=== PATIENT | female | born 1960 | race Caucasian/White ===

== ENCOUNTER 2017-11-21 18:24 | Inpatient (IN) | payer MEDICARE, OTHER ==
[2017-11-21] MEDS ORDERED: ADENOSINE 6 MG/2 ML VIAL IVPUSH ONE ×4 (18:33→19:19)
--- NOTE | 2017-11-21 18:39 | PDOC ---
History of Present Illness - General Stated Complaint: CHEST PAIN, DIZZINESS Time Seen by Provider: 11/21/17 18:32 History Source: Patient Exam Limitations: No Limitations - History of Present Illness Initial Comments: 11/21/17 21:37 Ms. Villegas is a 57 yo F with a hx of HTN, HLD, asthma, hypothyroidism, and hx of SVT 2 years ago without reocurrence or workup by cardiology presents via EMS for palpitations. She states it began at approximately 3:00 pm when she began having chest pain throughout her chest, SOB, and palpitations. She subsequently took her anti-hypertensive medications (losartan/HCTZ) and a 81 mg dose of aspirin, but it did not terminate her pain and palpitations. She arrived in the department with SVTs on the monitor without hypotension. Denies the following: fevers, chills, LOC, headaches, abdominal pain, nausea, vomiting, dysuria, hematuria, melena, hematochezia, leg pain and swelling. Denies recent travels, immobilizations, recent surgeries, and hx of DVT. Shx: C/S 33 years ago Meds: levothyroxine, advair, simvastatin, losartan/hctz, aspirin 81 mg Allergies: NKDA Social hx: Denies tobacco, alcohol, and substance abuse. Past History - Past Medical History Allergies/Adverse Reactions: Allergies Allergy/AdvReac Type Severity Reaction Status Date / Time No Known Allergies Allergy Unverified 11/21/17 18:40 Home Medications: Ambulatory Orders Aspirin [ASA -] 81 mg PO DAILY 11/21/17 Levothyroxine [Synthroid -] 100 mcg PO DAILY 11/21/17 Losartan/Hydrochlorothiazide [Losartan-Hctz 100-25 mg Tab] 1 each PO DAILY 11/21 Simvastatin 40 mg PO HS 11/21/17 Review of Systems - Review of Systems Able to Perform ROS?: Yes Constitutional: No: Chills, Diaphoresis, Fever, Weakness HEENTM: No: Recent change in vision, Ear Pain, Nose Pain, Throat Pain, Mouth Pain Respiratory: No: Cough, Shortness of Breath Cardiac (ROS): Yes: Palpitations. No: Chest Pain, Syncope ABD/GI: No: Abd. Pain w/ defecation, Constipated, Diarrhea, Nausea, Poor Appetite, Rectal Bleeding, Vomiting, Tarry Stools : No: Burning, Dysuria, Flank Pain, Hematuria Musculoskeletal: No: Back Pain, Joint Pain, Neck Pain Integumentary: No: Lesions, Lumps, Rash Neurological: No: Headache, Numbness, Tremors, Weakness, Ataxia, Dizziness Psychiatric: No: Stressors Endocrine: No: Unexplained Weight Gain Hematologic/Lymphatic: No: Anemia *Physical Exam - Physical Exam General Appearance: Yes: Nourished, Appropriately Dressed HEENT: positive: EOMI, FRANCA, Normal Voice, Symmetrical Neck: positive: Trachea midline. negative: Lymphadenopathy (R), Lymphadenopathy (L) Respiratory/Chest: positive: Lungs Clear, Normal Breath Sounds. negative: Chest Tender, Respiratory Distress, Accessory Muscle Use Cardiovascular: positive: Regular Rhythm, S1, S2, Tachycardia. negative: Systolic Murmur Vascular Pulses: Dorsalis-Pedis (R): 3+, Doralis-Pedis (L): 3+ Gastrointestinal/Abdominal: positive: Normal Bowel Sounds. negative: Tender Lymphatic: negative: Adenopathy Musculoskeletal: positive: Normal Inspection. negative: CVA Tenderness Extremity: positive: Normal Capillary Refill, Normal Inspection, Normal Range of Motion. negative: Tender Integumentary: positive: Normal Color, Dry, Warm Neurologic: positive: sales compensation analyst II-XII NML intact, Fully Oriented, Alert, Normal Mood/ Affect, Normal Response, Motor Strength 5/5. negative: EOM Palsy, Facial Droop , Sensory Deficit, Confused Heart Score/ECG Review - ECG Intrepretation Comment:: EKG pre 1st round of adenosine 12 mg initial presentation: ventricular rate: 201 bpm, QRS 82 ms, QTc 428 ms. SVT (18:25). EKG post 1st round of adenosine 12 mg initial dose: ventricular rate 138 bpm, WI 146 ms, QRS 82 ms, QTc 427 ms. Sinus tachy (18:32) EKG pre 2nd round of adenosine 12 mg: SVT with ventricular rate of 220. EKG post 2nd round of adenosine 12 mg: ventricular rate 77 bpm, WI is 182 ms, QRS is 84 ms, QTc is 454 ms. Normal sinus rhythm with no ST elevations or depressions noted. ED Treatment Course - LABORATORY CBC & Chemistry Diagram: 11/21/17 18:48 11/22/17 06:50 Medical Decision Making - Medical Decision Making 11/22/17 14:54 57 yo F with previous hx of SVT (2 yrs ago) and HTN who presents to the emergency department via EMS with palpitations secondary to SVT. Initial vitals: Initial Vital Signs Temp Pulse Resp BP Pulse Ox 98.2 F 190 H 20 161/103 100 11/21/17 18:40 11/21/17 18:40 11/21/17 18:40 11/21/17 18:40 11/21/17 18:40 Work up Laboratory Tests 11/21/17 11/21/17 18:48 18:48 WBC 8.3 RBC 4.28 Hgb 13.2 Hct 38.9 MCV 90.9 MCH 30.9 MCHC 34.0 RDW 13.4 Plt Count 386 MPV 9.0 Absolute Neuts (auto) 4.5 Neutrophils % 54.9 Lymphocytes % 31.9 Monocytes % 9.2 Eosinophils % 2.7 Basophils % 1.3 Nucleated RBC % 0 Sodium 139 Potassium 3.6 Chloride 103 Carbon Dioxide 24 Anion Gap 12 BUN 16 Creatinine 0.9 Creat Clearance w eGFR > 60 Random Glucose 123 H Calcium 9.3 Total Bilirubin 0.4 AST 15 ALT 27 Alkaline Phosphatase 61 Creatine Kinase 180 Creatine Kinase Index 0.6 CK-MB (CK-2) 1.18 Troponin I 0.05 Total Protein 8.3 H Albumin 3.9 TSH 4.44 H Initially presented to the emergency department with HR in the 220s range. She was asymptomatic and her blood pressure was within normal limits and she denied having chest pain, lighteheadedness or SOB. Initially, we used the modified valsalva maneuver to break the SVT which failed. We gave her 12 mg of adenosine while on EKG monitoring and her SVT broke to 110-130s and she continued to be asymptomatic. At approximately 7:00 pm, she began having SVT again and we pushed 12 mg of adenosine and her HR remained stable in the 70s-80s without symptoms. We started 5 mg of lopressor IV and 25 mg PO afterwards and contacted Dr. Segovia who will see the patient the next day. She was admitted to [facility]. CXR did not show acute pathologies. Dispo: Admit 11/22/17 15:01 *DC/Admit/Observation/Transfer Diagnosis at time of Disposition: Supraventricular tachycardia - Discharge Dispostion Decision to Admit order: Yes - Referrals - Patient Instructions - Post Discharge Activity
[2017-11-21 18:43] VITALS: BMI 29.2
[2017-11-21 19:02] LABS: BASO % 1.3 % (0-2.0); EOS % 2.7 % (0-4.5); HEMATOCRIT 38.9 % (32.4-45.2); HEMOGLOBIN 13.2 GM/dL (10.7-15.3); LYMPH % 31.9 % (8-40); MCH 30.9 pg (25.7-33.7); MEAN CELL VOLUME 90.9 fl (80-96); MONO % 9.2 % (3.8-10.2); NEUT % 54.9 % (42.8-82.8); PLATELET COUNT 386 K/MM3 (134-434); RBC 4.28 M/mm3 (3.60-5.2); RDW 13.4 % (11.6-15.6); WHITE BLOOD COUNT 8.3 K/mm3 (4.0-10.0)
[2017-11-21] MEDS ORDERED: METOPROLOL TARTRATE 5 MG/5 ML VIAL IVPUSH ONE (19:19)
[2017-11-21] MEDS ORDERED: METOPROLOL TARTRATE 25 MG TABLET (FP) PO ONE (19:19)
[2017-11-21] MEDS ORDERED: METOPROLOL TARTRATE 25 MG TABLET (FP) ONE (19:23)
[2017-11-21] MEDS ORDERED: METOPROLOL TARTRATE 5 MG/5 ML VIAL ONE (19:23)
[2017-11-21 19:30] LABS: ALBUMIN 3.9 g/dl (3.4-5.0); ANION GAP 12 MMOL/L (8-16); BLOOD UREA NITROGEN 16 mg/dL (7-18); CALCIUM 9.3 mg/dL (8.5-10.1); CHLORIDE 103 mmol/L (98-107); CO2 24 mmol/L (21-32); CREATININE 0.9 mg/dL (0.55-1.3); GLUCOSE,RANDOM 123 mg/dL (74-106); POTASSIUM 3.6 mmol/L (3.5-5.1); SGOT/AST 15 U/L (15-37); SGPT/ALT 27 U/L (13-61); SODIUM 139 mmol/L (136-145)
[2017-11-21 19:39] LABS: ALK PHOS 61 U/L (45-117); BILIRUBIN,TOTAL 0.4 mg/dL (0.2-1.0); TOT PROT 8.3 g/dl (6.4-8.2)
--- NOTE | 2017-11-21 20:41 | PDOC ---
Attending Attestation - Resident Resident Name: Clay Quintana - ED Attending Attestation I have performed the following: I have examined & evaluated the patient, The case was reviewed & discussed with the resident, I agree w/resident's findings & plan, Exceptions are as noted - HPI HPI: 11/21/17 20:37 57 F with h/o asthma, hypothyroid, SVT presenting to ED with palpitations. Pt states that she started feeling her heart racing at 3PM. She denies CP/SOB. States that she has had 2 prior episodes of SVT that required adenosine, last episode 2 years ago. Pt states this feels the same. Denies recent F/C. Denies N/ V/D. - Physicial Exam PE: 11/21/17 20:40 "GENERAL: Awake, alert, and fully oriented, in no acute distress. HEAD: No signs of trauma EYES: PERRLA, EOMI, sclera anicteric, conjunctiva clear ENT: Auricles normal inspection, hearing grossly normal, nares patent, oropharynx clear without exudates. Moist mucosa NECK: Nontender, no stepoffs, Normal ROM, supple, no lymphadenopathy, JVD, or masses LUNGS: Breath sounds equal, clear to auscultation bilaterally. No wheezes, and no crackles HEART: tachycardic, normal S1 and S2, no murmurs, rubs or gallops ABDOMEN: Soft, nontender, normoactive bowel sounds. No guarding, no rebound. No masses EXTREMITIES: Normal range of motion, no edema. No clubbing or cyanosis. No cords, erythema, or tenderness NEUROLOGICAL: Cranial nerves II through XII intact. 5/5 strength and sensation in all extremities, Normal speech, normal gait, normal cerebellar function SKIN: Warm, Dry, normal turgor, no rashes or lesions noted." - Medical Decision Making 11/21/17 20:40 57 F with palpitations, found to be tachycardic to 200 with SVT on EKG. Vagal maneuvers performed with no success. Pt given adenosine 12mg IV, with successful conversion to NSR Pt now reports no complaints. - Labs, cardiac enzymes 11/21/17 21:47 Pt with recurrent SVT 1 hour after adenosine administration. Adenosine 12mg IV given again, with successful conversion to NSR. Metoprolol 5mg IV and 25mg PO given Admitted to tele
--- NOTE | 2017-11-21 20:57 | PN ---
Teaching Attending Note Name of Resident: Karen Colunga ATTENDING PHYSICIAN STATEMENT I saw and evaluated the patient. I reviewed the resident's note and discussed the case with the resident. I agree with the resident's findings and plan as documented. SUBJECTIVE: Patient is a 57 year old woman with PMH of asthma, HTN, hypothyroid and SVT presenting to ER with palpitations. She started feeling her heart racing at 3PM. She had chest pain earlier but denies SOB. States that she has had 2 prior episodes of SVT that required adenosine, last episode 2 years ago. Denies chills , nausea or headache. In the ER she was found to be tachycardic to 200 with SVT on EKG. Vagal maneuvers performed with no success. She was given adenosine 12mg IV, with successful conversion to NSR. OBJECTIVE: Alert Vital Signs Period Temp Pulse Resp BP Sys/Pineda Pulse Ox Last 24 Hr 98.2 F 78-201 17-20 142-161/79-103 98-100 HEENT: No Jaundice, eye redness or discharge, PERRLA, EOMI. Normocephalic, atraumatic. External ears are normal and hearing is grossly intact. No nasal discharge. Neck: Supple, nontender. No palpable adenopathy or thyromegaly. No JVD Chest: Good effort. Clear to auscultation and percussion. Heart: Regular. No S3, rub or murmur Abdomen: Not distended, soft, nontender and no HSM. No rebound or guarding. Normoactive bowel sounds. Ext: Peripheral pulses intact. No leg edema. Skin: Warm and dry. No petechiae, rash or ecchymosis. Neuro: Alert. Oriented x3. CN 2-12 grossly intact. Sensation grossly intact in all four extremities and DTR are symmetric. Home Medications Medication Instructions Recorded Aspirin [ASA -] 81 mg PO DAILY 11/21/17 Levothyroxine [Synthroid -] 100 mcg PO DAILY 11/21/17 Losartan/Hydrochlorothiazide 1 each PO DAILY 11/21/17 [Losartan-Hctz 100-25 mg Tab] Simvastatin 40 mg PO HS 11/21/17 Abnormal Lab Results 11/21/17 18:48 Random Glucose 123 H Total Protein 8.3 H TSH 4.44 H ASSESSMENT AND PLAN: 1. SVT - Etiology unclear. Will admit to telemetry to rule out ACS in view of earlier brief bout of ches tpain. Get free T4, Phosphate, Mg+, lipid profile, ECHO, HbA1c, and give PO KCL (get K >4) and toprol XL 50 mg po q HS. Patient counseled on need for better BP control with salt restriction, weight loss and lifestyle changes. Cardiology consult. 2. DVT prophylaxis - Lovenox 40 mg SQ q 24 hours. 3. Advance directives - Full code
--- NOTE | 2017-11-21 22:14 | HP ---
CHIEF COMPLAINT: Tachycardia PCP: Dr. Wilbert Colby HISTORY OF PRESENT ILLNESS: Patient is a 57 year old female with a PMHx of HTN, HLD, Asthma, hypothyroidism , osteoporosis, SVT who presented to the ED with her sister complaining of "Tachycardia." According to patient, she woke up this morning with chest tightness and took her Albuterol with instant relief of symptoms. She states having to use her albuterol twice a week. Around 15:30 today, patient reached down to get her GPS and she started feeling palpitations associated with "squeezing," constant, nonradiating chest pain with no alleviating or exacerbating factors that lasted for one hour. She instantly took her Aspirin and drove home. Around 16:15, patient started feeling more palpitations and then took her BP and cholesterol medications. The palpitations did not subside , which prompted this hospital visit. According to patient, she had a similar episode three days ago that lasted only 45 minutes when she was laying down watching TV. She denies any strenuous activity or increase stress in her life. Patient states the first time she had this episode was three years ago and was taken to [facility] where they treated her with Adenosine, which stopped the SVT and was discharged from ED to follow up with manager of software. She followed up with the manager of software and states that he did not give her any medications or recommendations. A second episode happened two years ago and once again she went to [facility], gave her adenosine with symptoms resolved and discharged to follow up with Cardiology. Once again she reports the manager of software did not start her on any medications or give any recommendations. Patient otherwise denies any drug use, anxiety, fever, chills, nausea, vomiting , abdominal pain, shortness of breath, headaches, acute vision changes, dizziness, lightheadedness, diaphoresis, dysuria, hematuria, frequency, urgency , melena, hematochezia. Patient is unsure of ever having an ECHO or stress test States she has not followed up with a Community Health Education Coordinator in two years. 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 Single, lives alone. Moved from [facility] in [place]. Has two adult kids. Smoking: Denies Alcohol: 4 beers a week Drugs: Denies OBGYN History: with one elective first trimester Menarche: 13 Menopause: 47 Used to have regular 28 day cycles that lasted 3 days Not currently sexually active Family History: Father- Prostate cancer, HTN Mother- Asthma 7 brothers: HTN Allergies: No Known Allergies Allergy (Unverified 11/21/17 18:40) HOME MEDICATIONS: Home Medications Medication Instructions Recorded Aspirin [ASA -] 81 mg PO DAILY 11/21/17 Levothyroxine [Synthroid -] 100 mcg PO DAILY 11/21/17 Losartan/Hydrochlorothiazide 1 each PO DAILY 11/21/17 [Losartan-Hctz 100-25 mg Tab] Simvastatin 40 mg PO HS 11/21/17 REVIEW OF SYSTEMS CONSTITUTIONAL: Absent: fever, chills, diaphoresis, generalized weakness, malaise, loss of appetite, weight change HEENT: Absent: rhinorrhea, nasal congestion, throat pain, throat swelling, difficulty swallowing, mouth swelling, ear pain, eye pain, visual changes CARDIOVASCULAR: Chest pain, palpitations, irregular heart rate Absent: syncope, lightheadedness, peripheral edema RESPIRATORY: Absent: cough, shortness of breath, dyspnea with exertion, orthopnea, wheezing, stridor, hemoptysis GASTROINTESTINAL: Absent: abdominal pain, abdominal distension, nausea, vomiting, diarrhea, constipation, melena, hematochezia GENITOURINARY: Absent: dysuria, frequency, urgency, hesitancy, hematuria, flank pain, genital pain MUSCULOSKELETAL: Absent: myalgia, arthralgia, joint swelling, back pain, neck pain SKIN: Absent: rash, itching, pallor HEMATOLOGIC/IMMUNOLOGIC: Absent: easy bleeding, easy bruising, lymphadenopathy, frequent infections ENDOCRINE: Absent: unexplained weight gain, unexplained weight loss, heat intolerance, cold intolerance NEUROLOGIC: Absent: headache, focal weakness or paresthesias, dizziness, unsteady gait, seizure, mental status changes, bladder or bowel incontinence PSYCHIATRIC: Absent: anxiety, depression, suicidal or homicidal ideation, hallucinations. PHYSICAL EXAMINATION Vital Signs - 24 hr 11/21/17 11/21/17 11/21/17 18:40 18:50 19:02 Temperature 98.2 F Pulse Rate 190 H Pulse Rate [ 122 H 93 H Apical] Respiratory 20 18 17 Rate Blood Pressure 161/103 Blood Pressure 148/79 146/98 [Left Arm] O2 Sat by Pulse 100 99 99 Oximetry (%) 11/21/17 11/21/17 11/21/17 19:04 19:32 20:09 Temperature Pulse Rate Pulse Rate [ 201 H 78 Apical] Respiratory 18 17 Rate Blood Pressure 142/100 Blood Pressure 152/100 144/100 [Left Arm] O2 Sat by Pulse 98 98 Oximetry (%) GENERAL: Awake, alert, and fully oriented, in no acute distress. HEAD: Normal with no signs of trauma. EYES: Pupils equal, round and reactive to light, extraocular movements intact, sclera anicteric, conjunctiva clear. No lid lag. EARS, NOSE, THROAT: Ears normal, nares patent, oropharynx clear without exudates. Moist mucous membranes. NECK: Normal range of motion, supple without lymphadenopathy, JVD, or masses. LUNGS: Breath sounds equal, clear to auscultation bilaterally. No wheezes, and no crackles. No accessory muscle use. HEART: Regular rate and rhythm, normal S1 and S2 without murmur, rub or gallop. ABDOMEN: Soft, nontender, not distended, normoactive bowel sounds, no guarding, no rebound, no masses. No hepatomegaly or splenomegaly. MUSCULOSKELETAL: Normal range of motion at all joints. No bony deformities or tenderness. No CVA tenderness. UPPER EXTREMITIES: 2+ pulses, warm, well-perfused. No cyanosis. No clubbing. No peripheral edema. LOWER EXTREMITIES: 2+ pulses, warm, well-perfused. No calf tenderness. No peripheral edema. NEUROLOGICAL: Cranial nerves II-XII intact. Normal speech. Normal gait. Motor strength 5/5 bilaterally with sensory intact PSYCHIATRIC: Cooperative. Good eye contact. Appropriate mood and affect. SKIN: Warm, dry, normal turgor, no rashes or lesions noted, normal capillary refill. Laboratory Results - last 24 hr 11/21/17 11/21/17 18:48 18:48 WBC 8.3 RBC 4.28 Hgb 13.2 Hct 38.9 MCV 90.9 MCH 30.9 MCHC 34.0 RDW 13.4 Plt Count 386 MPV 9.0 Absolute Neuts (auto) 4.5 Neutrophils % 54.9 Lymphocytes % 31.9 Monocytes % 9.2 Eosinophils % 2.7 Basophils % 1.3 Nucleated RBC % 0 Sodium 139 Potassium 3.6 Chloride 103 Carbon Dioxide 24 Anion Gap 12 BUN 16 Creatinine 0.9 Creat Clearance w eGFR > 60 Random Glucose 123 H Calcium 9.3 Total Bilirubin 0.4 AST 15 ALT 27 Alkaline Phosphatase 61 Creatine Kinase 180 Creatine Kinase Index 0.6 CK-MB (CK-2) 1.18 Troponin I 0.05 Total Protein 8.3 H Albumin 3.9 TSH 4.44 H Chest X-Ray (11/21/17): No acute pathology ASSESSMENT/PLAN: Patient is a 57 year old female who presented for tachycardia and was found to be in SVT. Patient admitted to telemetry for further monitoring and management. SVT -Third episode in the last three years. Differentials include POTS, Hyperthyroidism, pheochromocytoma, dehydration, PE, Blood loss, or infectious etiology. Patient afebrile with no shortness of breath, hgb wnl, TSH elevated, BUN/Cr wnl and less likely dehydrated. -Repeat trops and EKG -Free T4 ordered -Metoprolol XL 50mg po -Toprol 5mg IVP Q4H PRN -Continuous tele monitoring -ECHO ordered -Magnesium, phosphate ordered to rule out any abnormalities -Replete potassium -Cardiology consult placed -Counseled on the importance of salt restriction and weight loss -Will likely require ablation Chest Pain -Rule out ACS -First Troponin 0.05, will repeat with EKG -Continuous cardiac monitoring -Cardiology consult -Continue ASA 81mg daily Hypokalemia -Likely medication induced -Potassium chloride 40meq ordered. -Maintain potassium >4.0 -Monitor BMP HTN- Uncontrolled -Losartan 100mg PO ordered -HCTZ 12.5mg PO -Metoprolol 50mg PO -Continue to monitor BP HLD -Lipid panel ordered -Continue Lipitor 20mg po HS Hypothyroidism -TSH elevated, Free T4 ordered -Continue home dose Levothyroxine 100mcg Hyperglycemia -A1C ordered -Patient denies history of DM -Daily BMP Asthma -Albuterol PRN F/E/N -On no fluids. Tolerates PO -Hypokalemia. Replete and repeat -Sodium controlled diet Prophylaxis -Lovenox 40 SQ Q24H for DVT. Moderate risk -No GI required Disposition -Full code -Overnight telemetry monitoring. Community Health Education Coordinator in the morning -Med Rec done Case Discussed with Attending, Dr. Duncan. Karen Colunga [id number] Visit type - Emergency Visit Emergency Visit: Yes ED Registration Date: 11/21/17 Care time: The patient presented to the Emergency Department on the above date and was hospitalized for further evaluation of their emergent condition. - New Patient This patient is new to me today: Yes Date on this admission: 11/21/17 - Critical Care Critical Care patient: No Hospitalist Screening - Colonoscopy Questionnaire Colonoscopy Questionnaire: Colonoscopy Questionnaire - Patient: 50 - 75 years old and never had a screening colonoscopy: Unknown History of colon or rectal polyps, or CA: Unknown History of IBD, Crohn's disease or UC: Unknown History of abdominal radiation therapy as a child: Unknown - Relative: 1 with colon or rectal CA, or polyps at age 60 or younger: Unknown Colon or rectal CA diagnosed at age 45 or younger: Unknown Multiple relatives with colon or rectal CA: Unknown - Outcome: Screening Result: Negative Screen
[2017-11-21] MEDS ORDERED: METOPROLOL TARTRATE 5 MG/5 ML VIAL IVPUSH PRN ×2 (22:19→22:27)
[2017-11-21] MEDS ORDERED: POTASSIUM CHLORIDE TABS 20 MEQ TABLET.ER (FP) PO ONE (22:23)
[2017-11-22 02:12] LABS: MAGNESIUM 2.3 mg/dL (1.8-2.4); PHOSPHOROUS 4.1 mg/dL (2.5-4.9)
[2017-11-22] MEDS: LEVOTHYROXINE NA 100 MCG TABLET (FP) PO SCH (06:41)
[2017-11-22 08:33] LABS: CHLORIDE 107 mmol/L (98-107); POTASSIUM 4.1 mmol/L (3.5-5.1); SODIUM 142 mmol/L (136-145)
[2017-11-22 08:45] LABS: ANION GAP 10 MMOL/L (8-16); BLOOD UREA NITROGEN 13 mg/dL (7-18); CHOLESTEROL 240 mg/dL (50-200); CO2 25 mmol/L (21-32); CREATININE 0.8 mg/dL (0.55-1.3); GLUCOSE,RANDOM 106 mg/dL (74-106); HDL CHOLESTEROL 75 mg/dL (40-60); TRIGLYCERIDES 91 mg/dL (0-150)
--- NOTE | 2017-11-22 09:11 | CON.CARD ---
Consult Consult Specialty:: cardio - History of Present Illness Chief Complaint: cp, palpitations History of Present Illness: 57 female presented with palpitations, cp, sob. in ER in SVT at rate of 200 bpm. broke with adenosine, recurred, broke again with adenosine (12mg both times) no more sx's since. given metoprolol yesterday in ER. denies cp or sob at baseline including walking on street or up stairs. was dizzy/LH at time of episode. no syncope PMH: PSVT x 1 in past, HTN, HLD, asthma, hypothyroidism no cigs no first degree relatives with CAD hx - Alcohol/Substance Use Hx Alcohol Use: No - Smoking History Smoking history: Never smoked Have you smoked in the past 12 months: No Home Medications - Allergies Allergies/Adverse Reactions: Allergies Allergy/AdvReac Type Severity Reaction Status Date / Time No Known Allergies Allergy Unverified 11/21/17 18:40 - Home Medications Home Medications: Ambulatory Orders Aspirin [ASA -] 81 mg PO DAILY 11/21/17 Levothyroxine [Synthroid -] 100 mcg PO DAILY 11/21/17 Losartan/Hydrochlorothiazide [Losartan-Hctz 100-25 mg Tab] 1 each PO DAILY 11/21 Simvastatin 40 mg PO HS 11/21/17 Review of Systems - Review of Systems Constitutional: denies: Chills, Fever Eyes: denies: Eye Pain HENT: denies: Nasal Congestion Neck: denies: Stiffness Cardiovascular: denies: Palpitations Respiratory: denies: Orthopnea, PND Gastrointestinal: denies: Diarrhea, Rectal Bleeding Genitourinary: denies: Burning, Hematuria Musculoskeletal: denies: Muscle Pain Integumentary: denies: Rash Neurological: denies: Numbness, Seizure, Syncope Endocrine: denies: Excessive Sweating Hematology/Lymphatic: denies: Excessive Bleeding Vital Signs: Vital Signs Temperature 98.2 F 11/22/17 05:42 Pulse Rate 60 11/22/17 05:42 Respiratory Rate 16 11/22/17 05:42 Blood Pressure 105/54 11/22/17 05:42 O2 Sat by Pulse Oximetry (%) 98 11/21/17 22:00 Constitutional: Yes: Well Nourished, No Distress Eyes: No: Sclera Icterus HENT: No: Nasal Congestion Neck: No: Decreased ROM Respiratory: Yes: CTA Bilaterally. No: Accessory Muscle Use Gastrointestinal: Yes: Normal Bowel Sounds. No: Distention, Hepatomegaly, Palpable Mass, Tenderness Cardiovascular: Yes: Regular Rate and Rhythm JVD: No Carotid Bruit: No PMI: Non-Displaced Heart Sounds: Yes: S1, S2. No: Gallop Murmur: No: Systolic Murmur, Diastolic Murmur Musculoskeletal: Yes: Other (No kyphosis) Extremities: No: Cool, Cyanosis Edema: No Peripheral Pulses: 2+ Left Carotid, 2+ Right Carotid, 2+ Left Doralis Pedis, 2+ Right Dorsalis Pedis Integumentary: No: Jaundice Neurological: Yes: Alert, Oriented (x3) Psychiatric: No: Agitated - Other Data Labs, Other Data: CBC, BMP 11/21/17 18:48 11/22/17 06:50 Troponin, BNP 11/21/17 11/22/17 11/22/17 18:48 01:00 06:50 Troponin I 0.05 1.00 H* 1.22 H* Troponin, BNP 11/21/17 11/22/17 11/22/17 18:48 01:00 06:50 Troponin I 0.05 1.00 H* 1.22 H* Assessment/Plan ECG #1 (11/21, 18:25): 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; 2 mm horiz/downsloping ST depressions diffusely ECG #2 (18:32): sinus tach, ST depressions resolving, now upsloping ECG #3 and #4: NSR, no ST depressions PSVT, likely AVNRT: -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 i also do not rec observation only, given potential for temporarily distracting/incapacitating sx's if occurs during driving (was dizzy at time of event) -she prefers meds over ablation -start toprol 50 qd -to f/u with us within 4 wks as outpt for monitoring chest pain: -occurred in setting of SVT with HR of 200 bpm -ischemic changes on ekg are likely rate-related -troponins rising (1.5), monitor trend -will need risk stratification with nuclear stress test to r/o underlying CAD but suspect this is all rate related (demand ischemia). pt with moderately elevated LDL--lexiscan MPI tomorrow HPL: -on simva 40 at home, ? if taking -LDL 160s here -needs routine outpt f/u for accurate ASCVD risk estimation and risk/benefit discussion of primary prevn statin (unless stress test shows ischemic heart dz, in which case statins are obligatory here) HTN: -bp controlled -cont home meds hypothyroid: -TSH ok; per primary
--- NOTE | 2017-11-22 09:38 | PN ---
Physical Exam: SUBJECTIVE: Patient seen and examined, no events overnight. NO further chest pain, palpitations, dyspnea, dizziness or new concerns. Feels well. OBJECTIVE: Vital Signs Period Temp Pulse Resp BP Sys/Pineda Pulse Ox Last 24 Hr 98.2 F-98.3 F 60-201 16-20 105-161/54-103 98-100 GENERAL: sitting in bed in no acute distress CVS: S1S2 regular, no murmurs or rubs appreciated Abdomen:soft, NT, ND, positive bowel sounds Extremities: No edema Chest: CTAB, no rales or wheezing Neck: soft, supple, no JVD Laboratory Results - last 24 hr 11/21/17 11/21/17 11/22/17 18:48 18:48 01:00 WBC 8.3 RBC 4.28 Hgb 13.2 Hct 38.9 MCV 90.9 MCH 30.9 MCHC 34.0 RDW 13.4 Plt Count 386 MPV 9.0 Absolute Neuts (auto) 4.5 Neutrophils % 54.9 Lymphocytes % 31.9 Monocytes % 9.2 Eosinophils % 2.7 Basophils % 1.3 Nucleated RBC % 0 Sodium 139 Potassium 3.6 Chloride 103 Carbon Dioxide 24 Anion Gap 12 BUN 16 Creatinine 0.9 Creat Clearance w eGFR > 60 Random Glucose 123 H Hemoglobin A1c % Calcium 9.3 Phosphorus 4.1 Magnesium 2.3 Total Bilirubin 0.4 AST 15 ALT 27 Alkaline Phosphatase 61 Creatine Kinase 180 Creatine Kinase Index 0.6 CK-MB (CK-2) 1.18 Troponin I 0.05 Total Protein 8.3 H Albumin 3.9 Triglycerides Cholesterol Total LDL Cholesterol HDL Cholesterol TSH 4.44 H Free T4 11/22/17 11/22/17 11/22/17 01:00 02:20 06:50 WBC RBC Hgb Hct MCV MCH MCHC RDW Plt Count MPV Absolute Neuts (auto) Neutrophils % Lymphocytes % Monocytes % Eosinophils % Basophils % Nucleated RBC % Sodium 142 Potassium 4.1 Chloride 107 Carbon Dioxide 25 Anion Gap 10 BUN 13 Creatinine 0.8 Creat Clearance w eGFR > 60 Random Glucose 106 Hemoglobin A1c % Calcium 9.0 Phosphorus Magnesium Total Bilirubin AST ALT Alkaline Phosphatase Creatine Kinase Creatine Kinase Index CK-MB (CK-2) Troponin I 1.00 H* Total Protein Albumin Triglycerides 91 Cholesterol 240 H Total LDL Cholesterol 162 H HDL Cholesterol 75 H TSH Free T4 1.01 11/22/17 11/22/17 06:50 06:50 WBC RBC Hgb Hct MCV MCH MCHC RDW Plt Count MPV Absolute Neuts (auto) Neutrophils % Lymphocytes % Monocytes % Eosinophils % Basophils % Nucleated RBC % Sodium Potassium Chloride Carbon Dioxide Anion Gap BUN Creatinine Creat Clearance w eGFR Random Glucose Hemoglobin A1c % 5.6 Calcium Phosphorus Magnesium Total Bilirubin AST ALT Alkaline Phosphatase Creatine Kinase Creatine Kinase Index CK-MB (CK-2) Troponin I 1.22 H* Total Protein Albumin Triglycerides Cholesterol Total LDL Cholesterol HDL Cholesterol TSH Free T4 Home Medications Medication Instructions Recorded Aspirin [ASA -] 81 mg PO DAILY 11/21/17 Levothyroxine [Synthroid -] 100 mcg PO DAILY 11/21/17 Losartan/Hydrochlorothiazide 1 each PO DAILY 11/21/17 [Losartan-Hctz 100-25 mg Tab] Simvastatin 40 mg PO HS 11/21/17 Active Medications Generic Name Dose Route Start Last Admin Trade Name Freq PRN Reason Stop Dose Admin Aspirin 81 mg 11/22/17 10:00 Asa - PO DAILY [facility] Atorvastatin Calcium 20 mg 11/22/17 22:00 Lipitor - PO HS [facility] Enoxaparin Sodium 40 mg 11/22/17 10:00 Lovenox - SQ DAILY [facility] Levothyroxine Sodium 100 mcg 11/22/17 07:00 11/22/17 06:41 Synthroid - PO 100 mcg DAILY@0700 [facility] Administration Metoprolol Succinate 50 mg 11/23/17 10:00 Toprol Xl - PO DAILY [facility] Metoprolol Tartrate 5 mg 11/21/17 22:27 Lopressor Injection - IVPUSH Q4H PRN HYPERTENSION Pneumococcal Polyvalent Vaccine 0.5 ml 11/22/17 10:00 Pneumovax - IM 11/22/17 10:01 .ONCE ONE EKG strip SVT ST depressions lateral leads, NSR currently ASSESSMENT/PLAN: 57 yof with PMHx of HTN, HLD, Asthma, hypothyroidism, osteoporosis, SVT admitted with SVT and NSTEMI -SVT -NSTEMI, suspect demand type II from above, r/o underlying CAD -HTN -HLD -Subclinical Hypothyroidism -Asthma Plan: s/p adenosine 20 mg IV x 1, lopressor 5 mg IV and 25 mg PO lopressor in the ED. Currently in NSR. Continue Toprol XL 50 mg daily. EKG with ischemic changes when tachycardic that improved with rate controlled. r/o underlying CAD Will likely need stress test. Follow up with cardiology. Lipid panel noted. Continue ASA/statin. TSH/T4 noted, continue levothyroxine. Outpatient endocrine follow up. Hold losartan/HCTZ to allow room for rate control/beta blockers. DVTPPX lovenox Dispo pending cardiology work up. Plan discussed with patient in detail, all questions answered. Patient relays understanding and in agreement. Visit type - Emergency Visit Emergency Visit: Yes ED Registration Date: 11/21/17 Care time: The patient presented to the Emergency Department on the above date and was hospitalized for further evaluation of their emergent condition. - New Patient This patient is new to me today: Yes Date on this admission: 11/22/17 - Critical Care Critical Care patient: No - Discharge Referral Referred to [facility] No
[2017-11-22] MEDS: ENOXAPARIN NA (PORCINE) 40 MG/0.4 ML DISP.SYRIN SQ SCH (09:46)
[2017-11-22] MEDS: ASPIRIN 81 MG CHEWABLE TABLETS PO SCH (09:46)
[2017-11-22] MEDS ORDERED: PNEUMOCOCCAL 23 VACCINE 0.5 ML VIAL IM ONE (10:00)
[2017-11-22] MEDS ORDERED: PNEUMOC 13-VAL CONJ-DIP CRM/PF 0.5 ML DISP.SYRIN IM ONE (10:00)
[2017-11-22] MEDS ORDERED: LOSARTAN POTASSIUM 50 MG TABLET (FP) PO SCH (10:00)
[2017-11-22] MEDS ORDERED: HYDROCHLOROTHIAZIDE 12.5 MG CAPSULE (FP) PO SCH (10:00)
[2017-11-22 10:15] LABS: MAGNESIUM 2.5 mg/dL (1.8-2.4); PHOSPHOROUS 3.4 mg/dL (2.5-4.9)
--- NOTE | 2017-11-22 21:14 | EKG ---
Test Reason : Blood Pressure : / mmHG Vent. Rate : 062 BPM Atrial Rate : 062 BPM P-R Int : 186 ms QRS Dur : 094 ms QT Int : 460 ms P-R-T Axes : 073 038 053 degrees QTc Int : 466 ms NORMAL SINUS RHYTHM NONSPECIFIC T WAVE ABNORMALITY PROLONGED QT ABNORMAL ECG WHEN COMPARED WITH ECG OF 21-NOV-2017 20:37, NO SIGNIFICANT CHANGE WAS FOUND Confirmed by IMANI RODRIGUEZ MD ([id number]) on 11/22/2017 9:14:13 PM Referred By: MADISON Confirmed By:IMANI RODRIGUEZ MD
--- NOTE | 2017-11-22 21:14 | EKG ---
Test Reason : Blood Pressure : / mmHG Vent. Rate : 065 BPM Atrial Rate : 065 BPM P-R Int : 180 ms QRS Dur : 090 ms QT Int : 468 ms P-R-T Axes : 072 037 062 degrees QTc Int : 486 ms NORMAL SINUS RHYTHM T WAVE ABNORMALITY, CONSIDER ANTERIOR ISCHEMIA PROLONGED QT ABNORMAL ECG WHEN COMPARED WITH ECG OF 22-NOV-2017 03:31, NO SIGNIFICANT CHANGE WAS FOUND Confirmed by IMANI RODRIGUEZ MD ([id number]) on 11/22/2017 9:13:37 PM Referred By: MADISON Confirmed By:IMANI RODRIGUEZ MD
--- NOTE | 2017-11-22 21:21 | EKG ---
Test Reason : Blood Pressure : / mmHG Vent. Rate : 077 BPM Atrial Rate : 077 BPM P-R Int : 182 ms QRS Dur : 084 ms QT Int : 402 ms P-R-T Axes : 070 040 054 degrees QTc Int : 454 ms NORMAL SINUS RHYTHM NORMAL ECG WHEN COMPARED WITH ECG OF 21-NOV-2017 18:32, VENT. RATE HAS DECREASED BY 61 BPM Confirmed by IMANI RODRIGUEZ MD ([id number]) on 11/22/2017 9:20:44 PM Referred By: Confirmed By:IMANI RODRIGUEZ MD
--- NOTE | 2017-11-22 21:27 | EKG ---
Test Reason : Blood Pressure : / mmHG Vent. Rate : 201 BPM Atrial Rate : 107 BPM P-R Int : 000 ms QRS Dur : 082 ms QT Int : 234 ms P-R-T Axes : 000 058 251 degrees QTc Int : 428 ms SUPRAVENTRICULAR TACHYCARDIA MARKED ST ABNORMALITY, POSSIBLE INFERIOR SUBENDOCARDIAL INJURY ABNORMAL ECG NO PREVIOUS ECGS AVAILABLE Confirmed by IMANI RODRIGUEZ MD ([id number]) on 11/22/2017 9:26:58 PM Referred By: Confirmed By:IMANI RODRIGUEZ MD
--- NOTE | 2017-11-22 21:27 | EKG ---
Test Reason : Blood Pressure : / mmHG Vent. Rate : 138 BPM Atrial Rate : 138 BPM P-R Int : 146 ms QRS Dur : 082 ms QT Int : 282 ms P-R-T Axes : 069 054 040 degrees QTc Int : 427 ms SINUS TACHYCARDIA NONSPECIFIC ST ABNORMALITY ABNORMAL ECG WHEN COMPARED WITH ECG OF 21-NOV-2017 18:25, ST NO LONGER DEPRESSED IN INFERIOR LEADS ST NO LONGER DEPRESSED IN LATERAL LEADS T WAVE INVERSION NO LONGER EVIDENT IN INFERIOR LEADS T WAVE INVERSION NO LONGER EVIDENT IN ANTEROLATERAL LEADS Confirmed by IMANI RODRIGUEZ MD ([id number]) on 11/22/2017 9:26:44 PM Referred By: Confirmed By:IMANI RODRIGUEZ MD
[2017-11-22] MEDS ORDERED: ATORVASTATIN CA 20 MG TABLET (FP) PO SCH (22:00)
[2017-11-23 06:53] LABS: ANION GAP 10 MMOL/L (8-16); BLOOD UREA NITROGEN 16 mg/dL (7-18); CALCIUM 8.7 mg/dL (8.5-10.1); CHLORIDE 106 mmol/L (98-107); CO2 26 mmol/L (21-32); CREATININE 0.8 mg/dL (0.55-1.3); GLUCOSE,RANDOM 107 mg/dL (74-106); POTASSIUM 3.9 mmol/L (3.5-5.1); SODIUM 142 mmol/L (136-145)
[2017-11-23 07:02] LABS: MAGNESIUM 2.2 mg/dL (1.8-2.4); PHOSPHOROUS 3.7 mg/dL (2.5-4.9)
[2017-11-23] MEDS: LEVOTHYROXINE NA 100 MCG TABLET (FP) PO SCH (07:10)
--- NOTE | 2017-11-23 07:55 | PN ---
Teaching Attending Note Name of Resident: Kip Carolina ATTENDING PHYSICIAN STATEMENT I saw and evaluated the patient. I reviewed the resident's note and discussed the case with the resident. I agree with the resident's findings and plan as documented with exceptions below. SUBJECTIVE: Patient seen and examined. No chest pain, palpitations, dyspnea, dizziness or concerns overnight. Feels well. Awaiting stress test. OBJECTIVE: Vital Signs Period Temp Pulse Resp BP Sys/Pineda Pulse Ox Last 24 Hr 97.8 F-98.2 F 58-72 18-20 116-163/71-93 98-98 Intake & Output 11/20/17 11/21/17 11/22/17 11/23/17 23:59 23:59 23:59 23:59 Intake Total 1070 260 Balance 1070 260 Weight 160 lb General: lying in bed in no acute distress Chest: CTAB, no rales or wheezing CVS:S1S2 regular Abdomen:soft, obese, NT Extremities: no edema Active Medications Aspirin (Asa -) 81 mg PO DAILY [facility] Last Admin: 11/22/17 09:46 Dose: 81 mg Atorvastatin Calcium (Lipitor -) 20 mg PO [facility] Last Admin: 11/22/17 21:22 Dose: 20 mg Enoxaparin Sodium (Lovenox -) 40 mg SQ DAILY [facility] Last Admin: 11/22/17 09:46 Dose: 40 mg Levothyroxine Sodium (Synthroid -) 100 mcg PO DAILY@0700 [facility] Last Admin: 11/23/17 07:10 Dose: 100 mcg Metoprolol Succinate (Toprol Xl -) 50 mg PO DAILY [facility] Metoprolol Tartrate (Lopressor Injection -) 5 mg IVPUSH Q4H PRN PRN Reason: HYPERTENSION Laboratory Results - last 24 hr 11/22/17 11/22/17 11/22/17 06:50 06:50 06:50 Sodium 142 Potassium 4.1 Chloride 107 Carbon Dioxide 25 Anion Gap 10 BUN 13 Creatinine 0.8 Creat Clearance w eGFR > 60 Random Glucose 106 Calcium 9.0 Phosphorus 3.4 Magnesium 2.5 H Troponin I 1.22 H* Triglycerides 91 Cholesterol 240 H Total LDL Cholesterol 162 H HDL Cholesterol 75 H 11/22/17 11/23/17 13:22 05:30 Sodium 142 Potassium 3.9 Chloride 106 Carbon Dioxide 26 Anion Gap 10 BUN 16 Creatinine 0.8 Creat Clearance w eGFR > 60 Random Glucose 107 H Calcium 8.7 Phosphorus 3.7 Magnesium 2.2 Troponin I 1.10 H* Triglycerides Cholesterol Total LDL Cholesterol HDL Cholesterol ASSESSMENT AND PLAN: 57 yof with PMHx of HTN, HLD, Asthma, hypothyroidism, osteoporosis, SVT admitted with SVT and NSTEMI -SVT -NSTEMI, suspect demand type II from above, r/o underlying CAD -HTN -HLD -Subclinical Hypothyroidism -Asthma Plan: s/p adenosine 20 mg IV x 1, lopressor 5 mg IV and 25 mg PO lopressor in the ED. Currently in NSR. Continue Toprol XL 50 mg daily. EKG with ischemic changes (ST depressons/T inversion In V3-V6, II/III/aVF) when tachycardic that improved with rate controlled. r/o underlying CAD For stress test today, will follow up. Cardiology input appreciated. Lipid panel noted. Continue ASA/statin. TSH/T4 noted, continue levothyroxine. Outpatient endocrine follow up. Hold losartan/HCTZ to allow room for rate control/beta blockers. DVTPPX lovenox Dispo pending cardiology work up. Plan discussed with patient in detail, all questions answered. Patient relays understanding and in agreement.
[2017-11-23] MEDS ORDERED: REGADENOSON 0.4 MG/5 ML PRE-FILLED SYRINGE IVPUSH ONE ×2 (09:15→12:47)
[2017-11-23 09:32] VITALS: TEMP 98.1
--- NOTE | 2017-11-23 13:41 | ECHO ---
Name: SOMERS, SHAGGY Exam:Adult Echocardiogram Study Date: 11/23/2017 08:00 AM Age: 57 yrs Reason For Study: SVT Height: 62 in Weight: 160 lb BSA: 1.7 m2 MMode/2D Measurements & Calculations IVSd: 0.99 cm Ao root diam: 2.7 cm LVIDd: 4.5 cm LA dimension: 3.1 cm LVIDs: 3.1 cm LVPWd: 0.85 cm EDV(Teich): 92.5 ml LAV (MOD-bp): 37.3 ml ESV(Teich): 37.8 ml Doppler Measurements & Calculations MV E max donavon: 54.8 cm/sec AI P1/2t: 561.7 msec MV A max donavon: 61.1 cm/sec MV E/A: 0.90 MV dec time: 0.31 sec AI max donavon: 441.6 cm/sec TR max donavon: 192.7 cm/sec AI max P.0 mmHg TR max P.9 mmHg AI dec slope: 230.3 cm/sec2 Med Peak E' Donavon: 4.4 cm/sec Med E/e': 12.6 Lat Peak E' Donavon: 5.8 cm/sec Lat E/e': 9.5 Procedure A complete two-dimensional transthoracic echocardiogram was performed (2D, M-mode, Doppler and color flow Doppler). Left Ventricle The left ventricle is normal in size. Left ventricular systolic function is low normal. Ejection Frac tion = 55-60%. E/A reversal with TDI revealing impaired relaxation (E/E' 13) with normal filling pressure. N o regional wall motion abnormalities noted. Right Ventricle The right ventricle is normal size. The right ventricular systolic function is normal. Atria The left atrial size is normal. LA volume index is 21 ml/m2. Right atrial size is normal. Mitral Valve The mitral valve is normal in structure and function. There is no mitral regurgitation noted. Tricuspid Valve The tricuspid valve is normal in structure and function. There is mild tricuspid regurgitation. Right ventricular systolic pressure is normal. Aortic Valve The aortic valve is normal in structure and function. Mild aortic regurgitation. Pulmonic Valve The pulmonic valve is not well visualized. Great Vessels The aortic root is normal size. Pericardium/Pleura There is no pericardial effusion. Interpretation Summary The left ventricle is normal in size. Ejection Fraction = 55-60%. E/A reversal with TDI revealing impaired relaxation (E/E' 13) with normal filling pressure Left ventricular systolic function is low normal. No regional wall motion abnormalities noted. The right ventricular systolic function is normal. The left atrial size is normal. Right atrial size is normal. There is mild tricuspid regurgitation. Mild aortic regurgitation. There is no pericardial effusion. Previous study is not available for comparison Jasen Washington MD 11/23/2017 01:41 PM
[2017-11-23 14:21] VITALS: BP 160/98; PULSE 73
[2017-11-23] MEDS: ASPIRIN 81 MG CHEWABLE TABLETS PO SCH (14:46)
[2017-11-23] MEDS: ENOXAPARIN NA (PORCINE) 40 MG/0.4 ML DISP.SYRIN SQ SCH (14:47)
--- NOTE | 2017-11-23 15:10 | PN ---
Progress Note (short form) - Note Progress Note: cc: cp, palps, sob s: no cp, palps, sob. no complaints, no events overnight tele: sinus, no events Constitutional: Yes: Well Nourished, No Distress Eyes: No: Sclera Icterus HENT: No: Nasal Congestion Neck: No: Decreased ROM Respiratory: Yes: CTA Bilaterally. No: Accessory Muscle Use Gastrointestinal: Yes: Normal Bowel Sounds. No: Distention, Hepatomegaly, Palpable Mass, Tenderness Cardiovascular: Yes: Regular Rate and Rhythm JVD: No Carotid Bruit: No PMI: Non-Displaced Heart Sounds: Yes: S1, S2. No: Gallop Murmur: No: Systolic Murmur, Diastolic Murmur Musculoskeletal: Yes: Other (No kyphosis) Extremities: No: Cool, Cyanosis Edema: No Peripheral Pulses: 2+ Left Carotid, 2+ Right Carotid, 2+ Left Doralis Pedis, 2+ Right Dorsalis Pedis Integumentary: No: Jaundice Neurological: Yes: Alert, Oriented (x3) Psychiatric: No: Agitated Assessment/Plan ECG #1 (11/21, 18:25): 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; 2 mm horiz/downsloping ST depressions diffusely ECG #2 (18:32): sinus tach, ST depressions resolving, now upsloping ECG #3 and #4: NSR, no ST depressions Nuclear pharm stress 11/2017 nl perfusion, small fixed apical defect c/w attenuation, nl LV function, EF 54% at rest, 58% stress echo 11/2017 low nl LV function, no RWMA, mild TR, mild AR PSVT, likely AVNRT: -here with 2nd recurrence of this arrhythmia; has not been on maintenance AVN elizabeth trial since the initial episode two years prior -d/w'd pt options (both reasonable per guideline rec.s) of: (a) no meds and observe for frequency of recurrent episodes (very likely to be benign when recurs given no hemodynamic instability here); (b) maintenance BB or CCB trial; (c) ablation -pt advised by Dr. Segovia: we don't know for certain what the possible long-term sequelae are from recurrent very rapid SVT causing troponin leaks, and this does raise some concern, also do not rec observation only, given potential for temporarily distracting/incapacitating sx's if occurs during driving (was dizzy at time of event) -she prefers meds over ablation -continue toprol 50 qd -to f/u with us within 4 wks as outpt for monitoring chest pain: -occurred in setting of SVT with HR of 200 bpm -ischemic changes on ekg are likely rate-related -trop peak 1.22, likely rate-related demand ischemia - nuclear stress test shows no ischemia, echo unremarkable - no further cardiac workup as inpatient, follow up in clinic as above HPL: -on simva 40 at home, ? if taking -LDL 160s here -needs routine outpt f/u for accurate ASCVD risk estimation and risk/benefit discussion of primary prevn statin (unless stress test shows ischemic heart dz, in which case statins are obligatory here), follow up in clinic as above HTN: -bp controlled -cont home meds hypothyroid: -TSH ok; per primary
--- NOTE | 2017-11-23 15:12 | DS ---
Physical Exam: SUBJECTIVE: Patient seen and examined this AM with no complaints. She says that she is feeling much better and denies any palpitations or dizziness overnight. OBJECTIVE: Vital Signs Period Temp Pulse Resp BP Sys/Pineda Pulse Ox Last 24 Hr 97.8 F-98.1 F 58-73 18-20 116-163/71-98 97-98 PHYSICAL EXAM GENERAL: A&O, no acute distress HEAD: Normocephalic, atraumatic. EYES: PERRL, no scleral icterus EARS, NOSE, THROAT: oropharynx clear without exudates. Moist mucous membranes. LUNGS: CTA b/l, no crackles or wheezes HEART: Regular rate and rhythm, normal S1 and S2 without murmur ABDOMEN: Soft, nontender to palpation, normoactive bowel sounds MUSCULOSKELETAL: No bony deformities or tenderness. EXTREMITIES: 2+ pulses, warm, well-perfused. No peripheral edema. NEUROLOGICAL: Cranial nerves II-XII grossly intact. Normal speech. PSYCHIATRIC: Cooperative. Good eye contact. Appropriate mood and affect. LABS Laboratory Results - last 24 hr 11/23/17 05:30 Sodium 142 Potassium 3.9 Chloride 106 Carbon Dioxide 26 Anion Gap 10 BUN 16 Creatinine 0.8 Creat Clearance w eGFR > 60 Random Glucose 107 H Calcium 8.7 Phosphorus 3.7 Magnesium 2.2 IMAGING: CXR: No acute chest pathology ECHO: EF 55-60%, E/A reversal with TDI revealing impaired relaxation with normal filling pressure, LV systolic function low normal, no wall motion abnormalities, Mild TR, Mild AR. LEXIScan: Overall negative stress test. Small zone apical fixed defect. Normal LV contraction. HOSPITAL COURSE: Date of Admission:11/21/17 Date of Discharge: 11/23/17 57 year old female with a PMH of HTN, HLD, Asthma, hypothyroidism, osteoporosis , SVT (2 years ago) was admitted for an episode of SVT. She was given 12 mg Adenosine in ED which broke her SVT to NSR, though she returned to SVT and required a second dose of adenosine 12 mg. She returned to NSR and remained for the rest of the admission. Troponins were also mildly elevated X 2 but trended down by the third troponin ordered. She elected against ablation therapy and was given Toprol XL 50 mg PO Daily for rate control. She was seen by cardiology who recommended an ECHO and LEXIScan both without any concerning findings as reported above. At that time she was deemed medically stable for discharge with close follow up by her PCP and Cardiology. Minutes to complete discharge: 35 Discharge Summary Reason For Visit: SUPRAVENTRICULAR TACHYCARDIA Current Active Problems Supraventricular tachycardia (Acute) Condition: Good - Instructions Diet, Activity, Other Instructions: You were admitted to the hospital due to dizziness caused by a rapid heart rate. You were given medication that returned your heart rate and rhythm back to normal. Some of your heart enzymes were elevated which was likely due to your elevated heart rate, and they are now trending back down. You were seen by a software test manager who discussed the different treatment options with you. You decided that it was best at this time to try to control your heart rate with medication. You were started on a new medication call Toprol XL which has controlled your heart rate well while you were in the hospital. An ultrasound of your heart was done which did not show any concerning abnormalities. You also had a stress test of your heart done which was normal as well. Upon discharge from the hospital you should start taking the new medication Toprol XL 50 mg by mouth once daily. You should STOP TAKING the Losartan/Hydrochlorothiazide for now. It is important that you check your blood pressure every day until you see your primary care physician within one week. Advise home BP monitoring till your next doctor visit. Notify your doctor or come to ED if you systolic blood pressure (top number) < 100 or persistently > 140 or any dizziness noted. Otherwise, you should continue all of your home medications as they were prescribed prior to this admission to the hospital. It is important that you follow up with your primary care physician within one week of discharge from the hospital. It is also important that you follow up with the software test manager Dr. Segovia in 4 weeks of discharge. If you begin to notice your heart beating much faster than normal, feel dizziness, chest pain or if your symptoms return or worsen or any new concerns, it is important that you call 911 or return to the Emergency Department Immediately. Referrals: Francisco J Segovia MD [Staff Physician] - 1 Month Disposition: HOME - Home Medications Comprehensive Discharge Medication List: Ambulatory Orders Aspirin [ASA -] 81 mg PO DAILY 11/21/17 Levothyroxine [Synthroid -] 100 mcg PO DAILY 11/21/17 Simvastatin 40 mg PO HS 11/21/17 Metoprolol Succinate [Toprol XL -] 50 mg PO DAILY #30 tab.sr.24h 11/23/17 This patient is new to me today: Yes Date on this admission: 11/23/17 Emergency Visit: Yes ED Registration Date: 11/21/17 Care time: The patient presented to the Emergency Department on the above date and was hospitalized for further evaluation of their emergent condition. Critical Care patient: No - Discharge Referral Referred to [facility] Med P.C.: No
== END 2017-11-23 16:47 | disposition home or self-care (01) | DRG 281 ==
LOC: JER 18:24 → JERBED 20:14 → J4W 22:16
PROVIDERS: ADMIT Internal Medicine; ATTEND Hospitalist
DX: I21.A1 Myocardial infarction type 2 (principal); I47.1 Supraventricular tachycardia; E87.6 Hypokalemia; R07.9 Chest pain, unspecified; I10 Essential (primary) hypertension; E78.5 Hyperlipidemia, unspecified; E03.9 Hypothyroidism, unspecified; J45.909 Unspecified asthma, uncomplicated
CPT/HCPCS: 36415; 71046-TC-FY; 78452-TC; 80048; 80053; 80061; 82550; 82553; 83036; 83721; 83735; 84100; 84439; 84443; 84484; 85025; 93005; 93010; 93017; 93306-TC; 99285-25; A9502; J2785

== ENCOUNTER 2020-02-21 12:16 | Emergency (ER) | payer MEDICARE, OTHER | END 2020-02-21 13:04 | disposition home or self-care (01) | LOC: JVIRT 12:16 | DX: Z03.818 Encounter for observation for suspected exposure to other biological agents ruled out (principal) | CPT/HCPCS: C9803; G2012-GT; U0003 ==

== ENCOUNTER 2020-05-07 10:18 | Emergency (ER) | payer MEDICARE | END 2020-05-07 11:56 | disposition home or self-care (01) | LOC: JVIRT 10:18 | DX: Z20.822 Contact with and (suspected) exposure to COVID-19 (principal) | CPT/HCPCS: C9803; G2251-GT; Q3014-GT; U0003 ==

== ENCOUNTER 2020-10-18 11:47 | Emergency (ER) | payer MEDICARE, OTHER ==
[2020-10-19 15:08] LABS: SARS-CoV-2 NAA Not Detected (Not Detected)
== END 2020-10-18 12:13 | disposition home or self-care (01) ==
LOC: JVIRT 11:47
DX: Z11.52 Encounter for screening for COVID-19 (principal)
CPT/HCPCS: C9803; Q3014-GT; U0003; U0005

== ENCOUNTER 2024-02-24 04:00 | Day surgery (SDC) | payer MEDICARE, OTHER ==
[2024-02-23 09:19] VITALS: BMI 31.1
[2024-02-24] MEDS ORDERED: LIDOCAINE HCL/PF 2% SDV 5ML VIAL ONE (09:57)
[2024-02-24] MEDS ORDERED: PROPOFOL 40 ML ONE (09:57)
[2024-02-24] MEDS ORDERED: ONDANSETRON 4 MG/2 ML VIAL ONE (09:59)
[2024-02-24] MEDS ORDERED: DEXAMETHASONE SOD PHOSPHATE 4 MG/1 ML VIAL ONE (09:59)
[2024-02-24] MEDS ORDERED: MIDAZOLAM HCL 2 MG/2 ML SINGLE DOSE VIAL ONE (10:00)
[2024-02-24] MEDS ORDERED: KETOROLAC TROMETHAMINE 30 MG/1 ML VIAL ONE (10:00)
[2024-02-24] MEDS: ceFAZolin SODIUM 1 GM VIAL IVPB ONE ×2 (11:00)
[2024-02-24] MEDS ORDERED: ceFAZolin SODIUM 1 GM VIAL ONE (11:02)
[2024-02-24] MEDS ORDERED: ONDANSETRON 4 MG/2 ML VIAL IVPUSH PRN (11:27)
[2024-02-24] MEDS ORDERED: oxyCODONE HCL 5 MG TABLET PO PRN (11:27)
[2024-02-24] MEDS ORDERED: LACTATED RINGERS SOLUTION 1,000 ML IV SCH (11:30)
[2024-02-24 13:01] VITALS: PULSE 60; RESP 16
[2024-02-24 13:13] VITALS: BP 122/62; TEMP 98.4
== END 2024-02-24 13:10 | disposition home or self-care (01) ==
LOC: JASU-SURG 04:00
PROVIDERS: ATTEND Urology
PROC: BT1FZZZ Fluoroscopy of Left Kidney, Ureter and Bladder (ICD-10-PCS; principal; 2024-02-24 10:15)
DX: N20.0 Calculus of kidney (principal)
CPT/HCPCS: 76000-TC-FY; 94760